=== PATIENT | male | born 2000 | race Caucasian/White ===

== ENCOUNTER 2021-10-24 08:14 | Emergency (ER) | payer MEDICAID ==
[~2021-10-24] VITALS: Ht 172.7 cm; Wt 84.0 kg
[2021-10-24 11:54] VITALS: BP 107/79
== END 2021-10-24 12:00 | disposition home or self-care (01) ==
LOC: ER 08:14
DX: N48.29 Other inflammatory disorders of penis (principal); Z98.890 Other specified postprocedural states
CPT/HCPCS: 76870; 93976; 99284